=== PATIENT | male | born 1960 | race Caucasian/White ===

== ENCOUNTER 2021-10-07 07:39 | Outpatient (CLI) | payer BC | END 2021-10-07 07:40 | disposition home or self-care (01) | LOC: SCSMRI 07:39 | PROVIDERS: ATTEND Internal Medicine Gastroenterology | DX: K74.60 Unspecified cirrhosis of liver (principal); R18.8 Other ascites | CPT/HCPCS: 74183 ==

== ENCOUNTER 2022-04-08 08:30 | Outpatient (CLI) | payer BC | END 2022-04-08 08:31 | disposition home or self-care (01) | LOC: SCSMRI 08:30 | PROVIDERS: ATTEND Physician Assistant Medical | DX: K74.60 Unspecified cirrhosis of liver (principal); R18.8 Other ascites; D64.9 Anemia, unspecified; H54.7 Unspecified visual loss; K76.89 Other specified diseases of liver | CPT/HCPCS: 74183; 82565 ==

== ENCOUNTER 2022-11-03 08:28 | Outpatient (CLI) | payer BC | END 2022-11-03 08:29 | disposition home or self-care (01) | LOC: SCSMRI 08:28 | PROVIDERS: ATTEND Internal Medicine Gastroenterology | DX: K74.60 Unspecified cirrhosis of liver (principal); R18.8 Other ascites; D64.9 Anemia, unspecified; K76.6 Portal hypertension; N62 Hypertrophy of breast; K76.89 Other specified diseases of liver | CPT/HCPCS: 74183 ==

== ENCOUNTER 2023-05-19 08:23 | Outpatient (CLI) | payer BC | END 2023-05-19 08:24 | disposition home or self-care (01) | LOC: SCSMRI 08:23 | PROVIDERS: ATTEND Internal Medicine Gastroenterology | DX: K74.60 Unspecified cirrhosis of liver (principal); H54.7 Unspecified visual loss; R16.0 Hepatomegaly, not elsewhere classified; R18.8 Other ascites; K80.20 Calculus of gallbladder without cholecystitis without obstruction; K76.89 Other specified diseases of liver | CPT/HCPCS: 74183 ==

== ENCOUNTER 2024-12-05 07:33 | Outpatient (CLI) | payer BC ==
[2024-12-05 08:21] LABS: Estimated GFR - POC 68.0
== END 2024-12-05 07:34 | disposition home or self-care (01) ==
LOC: SCSMRI 07:33
PROVIDERS: ATTEND Internal Medicine Gastroenterology
DX: K74.60 Unspecified cirrhosis of liver (principal); R16.0 Hepatomegaly, not elsewhere classified
CPT/HCPCS: 36415; 74183; 82565; A9581